=== PATIENT | female | born 1940 | race African-American/Black ===

== ENCOUNTER → 2018-10-28 | Outpatient (CLI) | payer OTHER, MEDICARE ==
[~2018-10-28] VITALS: Ht 170.2 cm; Wt 70.3 kg
[~2018-10-28] MED LIST: ALIVE ONCE DAI1 EACH PO; ASPIR 8181 MG PO; CRESTOR20 MG PO; MAXZIDE-25 MG1 EACH PO; TIMOLOL MALEATE5 M1 OPHTHALMIC
== END | disposition home or self-care (01) ==
LOC: GI 06:54
DX: Z12.11 Encounter for screening for malignant neoplasm of colon (principal); Z86.010 Personal history of colon polyps; Z80.0 Family history of malignant neoplasm of digestive organs; D12.5 Benign neoplasm of sigmoid colon; K57.30 Diverticulosis of large intestine without perforation or abscess without bleeding; K64.4 Residual hemorrhoidal skin tags; I10 Essential (primary) hypertension; E78.5 Hyperlipidemia, unspecified; Z98.41 Cataract extraction status, right eye; Z98.42 Cataract extraction status, left eye; Z98.890 Other specified postprocedural states; Z79.82 Long term (current) use of aspirin; Z79.899 Other long term (current) drug therapy; Z88.8 Allergy status to other drugs, medicaments and biological substances
CPT/HCPCS: 62110; 62900

== ENCOUNTER 2019-11-06 12:49 | Emergency (ER) | payer OTHER, MEDICARE ==
[~2019-11-06] VITALS: Ht 170.2 cm; Wt 69.8 kg
[2019-11-06] MEDS ORDERED: LATANOPROST 0.2.5 ML OPHTHALMIC (12:56)
[2019-11-06] MEDS ORDERED: MOBIC15 MG PO (14:16)
[2019-11-06 14:20] VITALS: BP 171/88
== END 2019-11-06 14:41 | disposition home or self-care (01) ==
LOC: ER 12:49
DX: M25.532 Pain in left wrist (principal); M79.642 Pain in left hand; I10 Essential (primary) hypertension; E78.5 Hyperlipidemia, unspecified; Z79.899 Other long term (current) drug therapy; Z88.8 Allergy status to other drugs, medicaments and biological substances